=== PATIENT | female | born 1995 | race African-American/Black ===

== ENCOUNTER → 2016-09-29 | Outpatient (REF) ==
[~2016-09-29] MED LIST: AMOXICILLIN 8751 TAB PO; BCP; NORCO 325 MG-51 TAB PO; PHENERGAN 25 TA25 MG PO
== END ==
LOC: WSOH 10:58
DX: Z02.1 Encounter for pre-employment examination (principal)

== ENCOUNTER → 2016-10-01 | Outpatient (REF) | LOC: WSOH 10:03 | DX: Z00.00 Encounter for general adult medical examination without abnormal findings (principal) ==

== ENCOUNTER → 2016-10-04 | Outpatient (REF) | LOC: WSOH 10:16 | DX: Z23 Encounter for immunization (principal) ==

== ENCOUNTER → 2016-10-04 | Outpatient (REF) | LOC: WSOH 15:00 | DX: Z02.89 Encounter for other administrative examinations (principal) ==

== ENCOUNTER → 2016-10-13 | Outpatient (REF) | LOC: WSOH 10:23 | DX: Z11.1 Encounter for screening for respiratory tuberculosis (principal) ==